=== PATIENT | male | born 1985 | race Two or more races ===

== ENCOUNTER 2023-12-23 23:09 | Emergency (ER) | payer OTHER ==
[~2023-12-23] VITALS: Ht 165.1 cm; Wt 68.2 kg
[2023-12-23 23:43] VITALS: TEMP 98.4
[2023-12-24] MEDS: ONDANSETRON 4 MG TABLET PO ONE (00:09)
[2023-12-24 00:25] LABS: BASOPHILS % (AUTO) 0.7 % (0.0-2.0); EOSINOPHILS % (AUTO) 1.7 % (1.0-6.0); HEMATOCRIT 42.8 % (41-53); HEMOGLOBIN 14.4 g/dL (13.5-17.5); LYMPHOCYTES # (AUTO) 2.2 K/uL (1.0-4.8); MEAN CORPUSCULAR HEMOGLOBIN 29.7 pg (26.0-34.0); MEAN CORPUSCULAR HGB CONC 33.7 G/dL (31.0-37.0); MEAN CORPUSCULAR VOLUME 88 fL (80-100); MONOCYTES # (AUTO) 0.6 K/uL (0.1-1.0); NEUTROPHILS # (AUTO) 4.9 K/uL (1.8-7.7); NEUTROPHILS % (AUTO) 61.6 % (40.0-70.0); PLATELET COUNT (AUTO) 239 K/uL (150-450); RED BLOOD CELL COUNT(AUTO) 4.85 MIL/uL (4.50-5.90)
[2023-12-24 00:27] LABS: ANION GAP 12 mmol/L (8-16); CALCIUM, TOTAL 8.5 mg/dL (8.8-10.5); CARBON DIOXIDE 25 mmol/L (22-29); CHLORIDE 105 mmol/L (98-107); CREATININE 0.82 mg/dL (0.60-1.30); GLOMERULAR FILTR. RATE CALC > 60 mL/min (>60); GLUCOSE,RANDOM 126 mg/dL (70-110); POTASSIUM 3.7 mmol/L (3.5-5.1); SODIUM SERUM 142 mmol/L (136-145); UREA NITROGEN, BLOOD 11 mg/dL (7-18)
[2023-12-24] MEDS ORDERED: ONDA-104 PO (01:13)
[2023-12-24] MEDS: LORazepam 1 MG TABLET PO ONE (01:46)
[2023-12-24 02:23] VITALS: BP 122/68; PULSE 102; RESP 18; O2SAT 97
== END 2023-12-24 04:25 | disposition home or self-care (01) ==
LOC: EMS 23:09
DX: R11.0 Nausea (principal); R06.02 Shortness of breath; T50.905A Adverse effect of unspecified drugs, medicaments and biological substances, initial encounter; F41.9 Anxiety disorder, unspecified; Z86.73 Personal history of transient ischemic attack (TIA), and cerebral infarction without residual deficits; Y92.89 Other specified places as the place of occurrence of the external cause
CPT/HCPCS: 99283; 80048; 85025; 36415; Q0162

== ENCOUNTER 2024-06-01 06:46 | Inpatient (IN) | payer OTHER ==
[~2024-06-01] VITALS: Ht 162.6 cm; Wt 75.0 kg
[~2024-06-01 06:46] MED LIST: ONDA-104 PO
[2024-06-01 07:48] LABS: BASOPHILS % (AUTO) 0.5 % (0.0-2.0); EOSINOPHILS % (AUTO) 3.9 % (1.0-6.0); HEMATOCRIT 44.4 % (41-53); HEMOGLOBIN 14.4 g/dL (13.5-17.5); LYMPHOCYTES # (AUTO) 2.1 K/uL (1.0-4.8); LYMPHOCYTES % (AUTO) 29.3 % (22.0-44.0); MEAN CORPUSCULAR HGB CONC 32.5 G/dL (31.0-37.0); MEAN CORPUSCULAR VOLUME 89 fL (80-100); MONOCYTES # (AUTO) 0.5 K/uL (0.1-1.0); MONOCYTES % (AUTO) 7.6 % (2.0-9.0); NEUTROPHILS # (AUTO) 4.2 K/uL (1.8-7.7); NEUTROPHILS % (AUTO) 58.7 % (40.0-70.0); PLATELET COUNT (AUTO) 261 K/uL (150-450); RED BLOOD CELL COUNT(AUTO) 4.98 MIL/uL (4.50-5.90); RED CELL DISTRIBUTION WIDTH 13.4 % (11.5-14.5); WHITE BLOOD COUNT (AUTO) 7.2 K/uL (4.5-11.0)
[2024-06-01] MEDS: LORazepam 2 MG TABLET PO ONE (07:48)
[2024-06-01] MEDS: ACETAMINOPHEN 500 MG TABLET PO ONE (07:51)
[2024-06-01 07:58] LABS: ANION GAP 8 mmol/L (8-16); CALCIUM, TOTAL 8.7 mg/dL (8.8-10.5); CARBON DIOXIDE 26 mmol/L (22-29); CHLORIDE 104 mmol/L (98-107); CREATININE 0.75 mg/dL (0.60-1.30); GLOMERULAR FILTR. RATE CALC > 60 mL/min (>60); GLUCOSE,RANDOM 119 mg/dL (70-110); POTASSIUM 3.9 mmol/L (3.5-5.1); SODIUM SERUM 138 mmol/L (136-145); UREA NITROGEN, BLOOD 21 mg/dL (7-18)
[2024-06-01 08:08] LABS: ALCOHOL, BLOOD (SERUM) < 3 mg/dL (0-10)
[2024-06-01 09:02] LABS: COVID AG,FIA SOURCE NASAL SWAB
[2024-06-01 09:05] VITALS: O2SAT 98
[2024-06-01 09:31] LABS: SARS-COV2 (COVID) ANTIGEN,FIA Negative (Negative)
[2024-06-01] MEDS ORDERED: HALOPERIDOL 5 MG TABLET PO PRN (10:45)
[2024-06-01] MEDS ORDERED: LORazepam 2 MG TABLET PO PRN (10:45)
[2024-06-01 20:10] VITALS: BP 137/102; PULSE 114; RESP 16; TEMP 98.6; O2SAT 98
[2024-06-01] MEDS ORDERED: BACITRACIN 28 GM OINTMENT TP PRN (22:00)
[2024-06-01] MEDS ORDERED: PETROLATUM,WHITE 28 GM JELLY TP PRN (22:00)
[2024-06-01] MEDS ORDERED: CloNIDine HCL 0.1 MG TABLET PO PRN (22:00)
[2024-06-01] MEDS ORDERED: BENZOCAINE/MENTHOL [CEPACOL] LOZENGE PO PRN (22:00)
[2024-06-01] MEDS ORDERED: DOCUSATE SODIUM 100 MG CAPSULE PO PRN (22:00)
[2024-06-01] MEDS ORDERED: MAG HYDROX/ALUMINUM HYD/SIMETH ES 30 ML SUSPENSION UDCUP PO PRN (22:00)
[2024-06-01] MEDS ORDERED: IBUPROFEN 600 MG TABLET PO PRN (22:00)
[2024-06-01] MEDS ORDERED: ALBUTEROL SULFATE HFA 90 MCG/PUFF 8 GM INHALER IH PRN (22:00)
[2024-06-01] MEDS ORDERED: ONDANSETRON 4 MG TABLET PO PRN (22:00)
[2024-06-01] MEDS ORDERED: OMEPRAZOLE 20 MG CAPSULE PO PRN (22:00)
[2024-06-01] MEDS ORDERED: MAGNESIUM HYDROXIDE SUSPENSION 30 ML UDCUP PO PRN (22:00)
[2024-06-01] MEDS ORDERED: LOPERAMIDE HCL 2 MG CAPSULE PO PRN (22:00)
[2024-06-01] MEDS ORDERED: ACETAMINOPHEN 325 MG TABLET PO PRN (22:00)
[2024-06-02] MEDS: ZOLPIDEM TARTRATE 10 MG TABLET PO PRN (00:15)
[2024-06-02 08:43] VITALS: BP 149/86; RESP 17; TEMP 98.4; O2SAT 98
[2024-06-02 09:20] VITALS: PULSE 105
[2024-06-02 10:49] VITALS: PULSE 88
== END 2024-06-02 13:34 | disposition home or self-care (01) | DRG 885 ==
LOC: EMS 06:52 → B2S 11:10
PROVIDERS: ADMIT Psychiatry & Neurology Psychiatry; ATTEND Psychiatry & Neurology Psychiatry
DX: F29 Unspecified psychosis not due to a substance or known physiological condition (principal); R45.851 Suicidal ideations; I69.351 Hemiplegia and hemiparesis following cerebral infarction affecting right dominant side; Z20.822 Contact with and (suspected) exposure to COVID-19; K59.00 Constipation, unspecified; F41.9 Anxiety disorder, unspecified; G47.00 Insomnia, unspecified; F32.A Depression, unspecified
CPT/HCPCS: 80048; 85025; 99285; G0480

== ENCOUNTER 2024-07-14 00:19 | Emergency (ER) | payer MEDICAID, OTHER ==
[~2024-07-14] VITALS: Ht 167.6 cm; Wt 77.3 kg
[2024-07-14 00:50] VITALS: BP 126/76; PULSE 86; RESP 20; TEMP 98.1; O2SAT 97
[2024-07-14] MEDS ORDERED: TRAZ-252 PO (01:13)
== END 2024-07-14 01:30 | disposition home or self-care (01) ==
LOC: EMS 00:23
DX: G47.00 Insomnia, unspecified (principal); F20.9 Schizophrenia, unspecified; F17.210 Nicotine dependence, cigarettes, uncomplicated; Z86.73 Personal history of transient ischemic attack (TIA), and cerebral infarction without residual deficits; Z79.899 Other long term (current) drug therapy
CPT/HCPCS: 99283; Z7502

== ENCOUNTER 2024-08-24 00:14 | Emergency (ER) | payer MEDICAID ==
[~2024-08-24] VITALS: Ht 167.6 cm; Wt 68.0 kg
[~2024-08-24 00:14] MED LIST changes: -ONDA-104 PO; +TRAZ-252 PO
[2024-08-24 00:17] VITALS: TEMP 98.1
[2024-08-24 01:57] VITALS: BP 114/73; PULSE 82; RESP 18; O2SAT 98
[2024-08-24] MEDS ORDERED: POLY119P3 PO (02:55)
== END 2024-08-24 03:21 | disposition home or self-care (01) ==
LOC: EMS 00:15
DX: K59.00 Constipation, unspecified (principal); J02.8 Acute pharyngitis due to other specified organisms; G47.00 Insomnia, unspecified; B97.89 Other viral agents as the cause of diseases classified elsewhere; F20.9 Schizophrenia, unspecified; F17.210 Nicotine dependence, cigarettes, uncomplicated; Z86.73 Personal history of transient ischemic attack (TIA), and cerebral infarction without residual deficits; Z79.899 Other long term (current) drug therapy
CPT/HCPCS: 74018; 99283

== ENCOUNTER 2024-08-24 12:24 | Emergency (ER) | payer MEDICAID ==
[~2024-08-24] VITALS: Ht 167.6 cm; Wt 68.2 kg
[2024-08-24 12:24] VITALS: BP 107/70; PULSE 92; RESP 16; TEMP 98; O2SAT 100
[~2024-08-24 12:24] MED LIST changes: +POLY119P3 PO
== END 2024-08-24 14:06 | disposition left against medical advice (07) ==
LOC: EMS 12:31
DX: R51.9 Headache, unspecified (principal); Z53.21 Procedure and treatment not carried out due to patient leaving prior to being seen by health care provider